=== PATIENT | female | born 1990 | race Caucasian/White ===

== ENCOUNTER 2018-02-10 18:21 | Emergency (ER) | payer OTHER ==
[~2018-02-10] VITALS: Ht 162.6 cm; Wt 100.0 kg
[2018-02-10 18:24] VITALS: BP 146/93; PULSE 97; RESP 16; TEMP 98.3; O2SAT 98
[2018-02-10] MEDS ORDERED: VITA1000 PO (19:00)
[2018-02-10] MEDS ORDERED: AMIT100T2 PO (19:00)
[2018-02-10] MEDS ORDERED: PRAZ2CAP PO (19:00)
[2018-02-10] MEDS ORDERED: WELLTAB39 PO (19:00)
[2018-02-10] MEDS ORDERED: HYDR-755 PO (19:00)
--- NOTE | 2018-02-10 19:07 | PD ---
HPI . Nausea Chief Complaint: Related Problem Time Seen by Provider: 18:35 Travel History International Travel<30 days: No Contact w/Intl Traveler<30days: No Traveled to known affect area: No History of Present Illness HPI This patient presents with chief complaint of nausea. She states that she has a Mirena. She has had it for a total of 8 years. She has had the current one for 3. She states she is here on vacation. She was feeling nauseous today. She states that her [id number] mentioned that she could. She has subsequently done 2 home tests which were positive. She then presented to us for evaluation and also requesting that her Mirena be removed. She does not have any pain. She states that she has not had a menstrual cycle in years. PFSH Past Medical History Bipolar Disorder: Yes Anxiety: Yes Diminished Hearing: No Psychiatric: Yes (ptsd) Tetanus Vaccination: < 5 Years Influenza Vaccination: No ?: : 5 Para: 4 Miscarriage: 1 : 0 Past Surgical History Surgical History: No Previous Surgery Social History Alcohol Use: No Tobacco Use: No Substance Use: No Allergies-Medications (Allergen,Severity, Reaction): Coded Allergies: No Known Allergies (Verified Allergy, Unknown, 02/10/18) Reported Meds & Prescriptions Reported Meds & Active Scripts Active Reported Vitamin D-1000 (Cholecalciferol) 1,000 Unit Tab 1,000 Units PO DAILY Wellbutrin Xl 24 HR (Bupropion HCl) 300 Mg Tab 300 Mg PO DAILY Hydroxyzine HCl 10 Mg Tab 40 Mg PO HS Prazosin (Prazosin HCl) 2 Mg Cap 2 Mg PO HS Amitriptyline (Amitriptyline HCl) 100 Mg Tab 100 Mg PO HS Review of Systems Except as stated in HPI: all other systems reviewed are Neg Physical Exam Narrative GENERAL: Awake and alert and in no acute distress. SKIN: Warm and dry. Normal color and turgor. HEAD: Normocephalic/atraumatic. EYES: Pupils are equal. Extraocular movements are intact. NECK: Normal range of motion. Supple. CARDIOVASCULAR: Regular rate and rhythm. RESPIRATORY: Nonlabored respirations. Normal sats. MUSCULOSKELETAL: Atraumatic. Normal muscle tone. NEUROLOGICAL: A and O 3. Nonfocal. PSYCHIATRIC: Appropriate mood and affect. Data Data Last Documented VS Vital Signs Date Time Temp Pulse Resp B/P (MAP) Pulse Ox O2 Delivery O2 Flow Rate FiO2 02/10/18 18:24 98.3 97 16 146/93 (110) 98 Orders Orders Beta Hcg (Quant/Titer) (02/10/18 19:07) Ed Urine Pregnancytest Poc (02/10/18 19:13) Labs Laboratory Tests Test 02/10/18 19:19 Human Chorionic Gonadotropin, Quant LESS THAN 1 MIU/ML MDM Medical Decision Making Medical Screen Exam Complete: Yes Emergency Medical Condition: Yes Differential Diagnosis Differential diagnosis includes but is not limited to viral gastroenteritis, food poisoning, bowel obstruction, UTI Narrative Course This patient presents with chief complaint of nausea. She states that she did 2 home test today and that they were both positive. She has a Mirena. She has not had a menstrual cycle in years. Bedside test here is negative. Quantitative hCG is negative. Diagnosis Primary Impression: Nausea Patient Instructions: General Instructions Departure Forms: Tests/Procedures Disposition: 01 DISCHARGE HOME Condition: Stable Babs Ingram MD Feb 10, 2018 19:07
== END 2018-02-10 20:33 | disposition home or self-care (01) ==
LOC: NEPD 18:21
DX: R11.0 Nausea (principal); F31.9 Bipolar disorder, unspecified; F43.10 Post-traumatic stress disorder, unspecified; Z79.899 Other long term (current) drug therapy
CPT/HCPCS: 84702; 84703; 99283